=== PATIENT | female | born 1940 | race Caucasian/White ===

== ENCOUNTER 2022-02-27 08:22 | Observation (INO) | payer OTHER ==
[2022-02-27 08:32] VITALS: BMI 26.4
[2022-02-27 09:37] LABS: BASO % 0.4 % (0-2.0); EOS % 0.5 % (0-4.5); HEMATOCRIT 39.8 % (32.4-45.2); HEMOGLOBIN 13.7 GM/dL (10.7-15.3); LYMPH % 8.6 % (8-40); MCH 31.2 pg (25.7-33.7); MCHC 34.4 g/dl (32.0-36.0); MEAN CELL VOLUME 90.6 fl (80-96); MEAN PLT VOLUME 7.6 fl (7.5-11.1); MONO % 6.2 % (3.8-10.2); NEUT % 84.3 % (42.8-82.8); PLATELET COUNT 214 10^3/uL (134-434); RBC 4.39 M/mm3 (3.60-5.2); RDW 13.6 % (11.6-15.6); WHITE BLOOD COUNT 12.5 K/mm3 (4.0-10.0)
[2022-02-27 09:47] LABS: ACTIVATED PTT 29.3 SECONDS (25.2-36.5); INR 0.97 (0.83-1.09); PROTHROMBIN TIME (PATIENT) 11.2 SEC (9.7-13.0)
[2022-02-27 09:52] LABS: ALBUMIN 3.3 g/dl (3.4-5.0); BLOOD UREA NITROGEN 14.4 mg/dL (7-18); CALCIUM 9.3 mg/dL (8.5-10.1)
[2022-02-27 09:57] LABS: BILIRUBIN,TOTAL 0.2 mg/dL (0.2-1)
[2022-02-27 10:04] LABS: TOT PROT 6.5 g/dl (6.4-8.2)
[2022-02-27 10:29] LABS: PH,URINE 7.5 (5.0-8.0); URINE APPEARANCE CLEAR; URINE BILIRUBIN NEGATIVE (NEGATIVE); URINE COLOR YELLOW; URINE GLUCOSE (UA) NEGATIVE (NEGATIVE); URINE KETONE NEGATIVE (NEGATIVE); URINE LEUK ESTERASE NEGATIVE (NEGATIVE); URINE NITRITE NEGATIVE (NEGATIVE); URINE PROTEIN NEGATIVE (NEGATIVE); URINE UROBILINOGEN 0.2 mg/dL (0.2-1.0)
[2022-02-27] MEDS ORDERED: amLODIPine BESYLATE 10 MG TABLET (FP) PO ONE (21:30)
[2022-02-27] MEDS: THIOTHIXENE 5 MG CAPSULE PO SCH ×2 (22:27→22:41)
[2022-02-27] MEDS: MECLIZINE HCL 12.5 MG TABLET PO PRN (22:27)
[2022-02-27] MEDS: ATORVASTATIN CA 20 MG TABLET (FP) PO SCH (22:27)
[2022-02-27] MEDS: THIOTHIXENE 1 MG PO SCH (23:41)
[2022-02-27] MEDS: ACETAMINOPHEN 325 MG TABLET (FP) PO PRN (23:41)
[2022-02-28 07:37] LABS: BASO % 0.5 % (0-2.0); EOS % 2.1 % (0-4.5); HEMATOCRIT 41.2 % (32.4-45.2); MCH 31.1 pg (25.7-33.7); MCHC 34.1 g/dl (32.0-36.0); MEAN CELL VOLUME 91.1 fl (80-96); MONO % 8.4 % (3.8-10.2); PLATELET COUNT 199 10^3/uL (134-434); RBC 4.52 M/mm3 (3.60-5.2); RDW 13.6 % (11.6-15.6); WHITE BLOOD COUNT 9.5 K/mm3 (4.0-10.0)
[2022-02-28 08:07] LABS: ALBUMIN 3.4 g/dl (3.4-5.0); BLOOD UREA NITROGEN 12.9 mg/dL (7-18); CALCIUM 9.4 mg/dL (8.5-10.1)
[2022-02-28 08:12] LABS: BILIRUBIN,TOTAL 0.4 mg/dL (0.2-1); TOT PROT 6.8 g/dl (6.4-8.2)
[2022-02-28] MEDS ORDERED: RALOXIFENE HCL 60 MG PO SCH (10:00)
[2022-02-28] MEDS: THIOTHIXENE 1 MG PO SCH (10:05)
[2022-02-28] MEDS: amLODIPine BESYLATE 10 MG TABLET (FP) PO SCH (10:07)
[2022-02-28] MEDS: ACETAMINOPHEN 325 MG TABLET (FP) PO PRN ×2 (10:07→21:40)
[2022-02-28] MEDS: HEPARIN NA (PORCINE) 5,000 UNITS/ML 1ML VIAL SQ SCH ×2 (10:07→21:40)
[2022-02-28] MEDS: MECLIZINE HCL 12.5 MG TABLET PO PRN (16:53)
[2022-02-28] MEDS: ATORVASTATIN CA 20 MG TABLET (FP) PO SCH (21:40)
[2022-02-28] MEDS: POLYETHYLENE GLYCOL (HEALTHYLAX) 3350 17 GM PACKET PO SCH (21:40)
[2022-03-01] MEDS: MECLIZINE HCL 12.5 MG TABLET PO PRN ×2 (01:58→10:51)
[2022-03-01] MEDS: HEPARIN NA (PORCINE) 5,000 UNITS/ML 1ML VIAL SQ SCH ×2 (09:22→21:22)
[2022-03-01] MEDS: POLYETHYLENE GLYCOL (HEALTHYLAX) 3350 17 GM PACKET PO SCH ×2 (09:22→21:21)
[2022-03-01] MEDS: amLODIPine BESYLATE 10 MG TABLET (FP) PO SCH (09:24)
[2022-03-01] MEDS: THIOTHIXENE 1 MG PO SCH (09:24)
[2022-03-01] MEDS: PANTOPRAZOLE 40 MG TABLET PO SCH (09:26)
[2022-03-01] MEDS: ACETAMINOPHEN 325 MG TABLET (FP) PO PRN ×2 (10:50→21:21)
[2022-03-01] MEDS: ATORVASTATIN CA 20 MG TABLET (FP) PO SCH (21:22)
[2022-03-02] MEDS ORDERED: THIOTHIXENE 1 MG PO SCH ×2 (07:46→10:00)
[2022-03-02] MEDS ORDERED: REGADENOSON 0.4 MG/5 ML PRE-FILLED SYRINGE IVPUSH ONE ×2 (08:51→09:00)
[2022-03-02] MEDS: POLYETHYLENE GLYCOL (HEALTHYLAX) 3350 17 GM PACKET PO SCH ×2 (11:29→21:09)
[2022-03-02] MEDS: THIOTHIXENE 1 MG PO SCH (11:30)
[2022-03-02] MEDS: amLODIPine BESYLATE 10 MG TABLET (FP) PO SCH (11:30)
[2022-03-02] MEDS: PANTOPRAZOLE 40 MG TABLET PO SCH (11:30)
[2022-03-02] MEDS: HEPARIN NA (PORCINE) 5,000 UNITS/ML 1ML VIAL SQ SCH ×2 (11:30→21:09)
[2022-03-02] MEDS: ATORVASTATIN CA 20 MG TABLET (FP) PO SCH (21:09)
[2022-03-02] MEDS: ACETAMINOPHEN 325 MG TABLET (FP) PO PRN (23:07)
[2022-03-03] MEDS: POLYETHYLENE GLYCOL (HEALTHYLAX) 3350 17 GM PACKET PO SCH (09:48)
[2022-03-03] MEDS: amLODIPine BESYLATE 10 MG TABLET (FP) PO SCH (09:49)
[2022-03-03] MEDS: THIOTHIXENE 1 MG PO SCH (09:49)
[2022-03-03] MEDS: HEPARIN NA (PORCINE) 5,000 UNITS/ML 1ML VIAL SQ SCH (09:49)
[2022-03-03] MEDS: PANTOPRAZOLE 40 MG TABLET PO SCH (09:49)
[2022-03-03 11:39] VITALS: BP 136/78; PULSE 63; TEMP 98.3
== END 2022-03-03 14:34 | disposition home or self-care (01) ==
LOC: JER 08:22 → JERBED 10:58 → J4S 17:44
PROVIDERS: ADMIT Family Medicine; ATTEND Family Medicine
PROC: 3E023GC Introduction of Other Therapeutic Substance into Muscle, Percutaneous Approach (ICD-10-PCS; principal; 2022-02-27)
PROC: 3E033GC Introduction of Other Therapeutic Substance into Peripheral Vein, Percutaneous Approach (ICD-10-PCS; 2022-02-27)
DX: S06.0X9A Concussion with loss of consciousness of unspecified duration, initial encounter (principal); R55 Syncope and collapse; I10 Essential (primary) hypertension; W18.39XA Other fall on same level, initial encounter; Y93.89 Activity, other specified; F25.9 Schizoaffective disorder, unspecified; G20 Parkinson's disease; F42.9 Obsessive-compulsive disorder, unspecified; Y92.091 Bathroom in other non-institutional residence as the place of occurrence of the external cause; R42 Dizziness and giddiness; K21.9 Gastro-esophageal reflux disease without esophagitis; M54.2 Cervicalgia; M54.6 Pain in thoracic spine
CPT/HCPCS: 0241U-QW; 36415; 70450-TC; 71045-TC-FY; 72125-TC; 72170-TC-FY; 78452-TC; 80053; 81003; 82962; 84443; 84484; 85025; 85610; 85730; 87086; 87807; 93005; 93010; 93017; 93306-TC; 93880-TC; 96372; 96374; 97116-GP; 97161-GP; 99285-25; A9502; C9803-CS; G0378; J1644; J2785; U0003; U0005